=== PATIENT | female | born 1960 | race Caucasian/White ===

== ENCOUNTER → 2024-08-31 15:49 | Outpatient (REF) | payer OTHER, SELFPAY | LOC: HWWDC 15:49 | PROVIDERS: ATTENDING PHYSICIAN Obstetrics & Gynecology Gynecology; FAMILY PHYSICIAN Nurse Practitioner Adult Health | DX: Z12.31 Encounter for screening mammogram for malignant neoplasm of breast (principal) | CPT/HCPCS: 77063; 77067 ==

== ENCOUNTER 2025-05-18 10:19 | Day surgery (SDC) | payer MEDICARE, OTHER, SELFPAY ==
[2025-05-10 12:12] VITALS: BMI 22.2
[2025-05-10 12:44] LABS: Hematocrit 40.6 % (37.0-47.0); Hemoglobin 13.9 g/dL (12.0-16.0); Mean Corp Hgb Conc. 34.2 g/dL (33.0-37.0); Mean Corpuscular Volume 92.5 fL (81.0-99.0); Nucleated Red Blood Cells % 0 %; Platelet Count 225 10^3/uL (130-400); Red Cell Dist. Width 11.9 % (11.5-14.5)
[2025-05-10 13:18] LABS: ALT (SGPT) 19 U/L (0-35); AST (SGOT) 24 U/L (14-36); Albumin 4.3 g/dl (3.5-5.0); Alkaline Phosphatase 55 U/L (38-126); Blood Urea Nitrogen 28 mg/dl (7-17); Calcium 8.9 mg/dl (8.4-10.2); Carbon Dioxide 29 mmol/L (22-30); Chloride 105 mmol/L (98-107); Estimated Creatinine Clearance 50 ml/min; Glucose 84 mg/dl (70-99); Potassium 4.5 mmol/L (3.5-5.1); Sodium 137 mmol/L (135-145); Total Protein 7.0 g/dl (6.3-8.2); eGFR > 60.00
[2025-05-18] VITALS (10 sets, daily range): BP systolic 102–159; BP diastolic 46–82
--- NOTE | 2025-05-18 14:53 | ITS.CL.PACE ---
[employer] Department Supervisor - Pacemaker Implant
Pacemaker Implant
Procedure Report:
Date of Procedure: May 18, 2025
Patient : [id number]
Procedure: Pacemaker generator change
Indication: Pacemaker generator BILL
Implants:
Pulse Generator: Medtronic; Model# W1 DR ; SN: [id number]
RA Lead: Medtronic; Model# 5076; SN: [id number] implanted 2013
RV Lead: Medtronic; Model# 5076; SN: [id number] implanted 2013
Explants:
Medtronic pacemaker product number A2 DR serial number [id number] implanted 2013
Technique: A time out was performed. The procedure site was identified. The patient was anesthetized by the anesthesia service. Preoperative sedation was administered. The patient was prepped and draped in the usual fashion. Local anesthetic was
applied to the left prepectoral subcutaneous tissue. A 3 inch incision was made 2.5 inches below the left clavicle. A subcutaneous pocket was created with blunt and sharp dissection and hemostasis controlled with Bovie cautery. The chronic leads
were identified and removed from the chronic generator. The chronic generator was removed from the field. The new generator was brought the field and connected to the chronic leads. The new generator was sutured tied to the pectoral floor. The
leads were appropriately attached to the device. The pocket was irrigated with antibiotic solution. The device and leads were placed in the pocket. The incision was closed in three layers with absorbable suture. The estimated blood loss was minimal.
There were no complications.��
Lead Analysis:
RA lead: P: 0.9 mV; Threshold: 0.5 V @ 0.5��ms; Impedance: 342 ohms.
RV lead: R: 8.1 mV; Threshold: 1.5 V @ 0.5��ms; Impedance: 399 ohms.
Final Programming: AAIR�DDDR lower rate 60 bpm with AV interval 250 ms
�
Conclusion: Uncomplicated Medtronic pacemaker generator change
Recommendation: Routine post pacemaker care.
== END 2025-05-18 16:10 | disposition home or self-care (01) ==
LOC: CATH 10:19
PROVIDERS: ATTENDING PHYSICIAN Internal Medicine Cardiovascular Disease; FAMILY PHYSICIAN Nurse Practitioner Adult Health
DX: Z45.010 Encounter for checking and testing of cardiac pacemaker pulse generator [battery] (principal); I45.10 Unspecified right bundle-branch block; I45.9 Conduction disorder, unspecified; I44.2 Atrioventricular block, complete; I47.19 Other supraventricular tachycardia; F41.9 Anxiety disorder, unspecified; E03.9 Hypothyroidism, unspecified; F32.A Depression, unspecified; I10 Essential (primary) hypertension; M81.0 Age-related osteoporosis without current pathological fracture; Z79.899 Other long term (current) drug therapy; Z79.82 Long term (current) use of aspirin; Z79.890 Hormone replacement therapy; Z88.5 Allergy status to narcotic agent; Z88.1 Allergy status to other antibiotic agents; Z88.6 Allergy status to analgesic agent; Z87.891 Personal history of nicotine dependence
CPT/HCPCS: 33228; 36415; 80053; 85025; 93005; C1785

== ENCOUNTER 2025-08-16 06:23 | Day surgery (SDC) | payer MEDICARE, OTHER, SELFPAY | END 2025-08-16 14:55 | disposition home or self-care (01) | LOC: GI 06:23 | PROVIDERS: ATTENDING PHYSICIAN Internal Medicine Gastroenterology | DX: Z12.11 Encounter for screening for malignant neoplasm of colon (principal); K64.9 Unspecified hemorrhoids; R13.10 Dysphagia, unspecified; K22.89 Other specified disease of esophagus; K31.89 Other diseases of stomach and duodenum; K63.5 Polyp of colon; K22.70 Barrett's esophagus without dysplasia | CPT/HCPCS: 45380; 43239; 88305; 88342 ==

== ENCOUNTER → 2025-09-02 10:52 | Outpatient (REF) | payer MEDICARE, OTHER, SELFPAY | LOC: HWRAD 10:52 | PROVIDERS: ATTENDING PHYSICIAN Obstetrics & Gynecology Gynecology; FAMILY PHYSICIAN Nurse Practitioner Adult Health; REFERRING PHYSICIAN Internal Medicine Endocrinology, Diabetes & Metabolism | DX: Z12.39 Encounter for other screening for malignant neoplasm of breast (principal); M81.0 Age-related osteoporosis without current pathological fracture | CPT/HCPCS: 77063; 77067 ==